=== PATIENT | female | born 1990 ===

== ENCOUNTER 2020-06-03 16:37 | Emergency (ER) | payer SELFPAY ==
[~2020-06-03] VITALS: Ht 162.6 cm; Wt 54.4 kg
[2020-06-03 16:49] VITALS: BP 98/39; Ht 162.6 cm; Wt 54.4 kg
== END 2020-06-03 19:00 | disposition home or self-care (01) ==
LOC: EDBD 16:37 → ED 16:37
DX: R05 Cough (principal); F15.20 Other stimulant dependence, uncomplicated; F10.20 Alcohol dependence, uncomplicated; Z20.828 Contact with and (suspected) exposure to other viral communicable diseases
CPT/HCPCS: 82962; 99406; Q0092